=== PATIENT | female | born 1955 | race Caucasian/White ===

== ENCOUNTER 2017-11-09 17:55 | Inpatient (IN) | payer OTHER ==
[2017-11-09 20:10] LABS: ADD MAN DIFF? NO
[2017-11-09 20:16] LABS: WHITE BLOOD COUNT 7.8 10^3/ul (4.8-10.8)
[2017-11-09 20:16] LABS: BASOPHIL # 0.1 10^3/ul (0.0-0.1); BASOPHILS % 0.8 % (0.0-2.0); EOSINOPHILS # 0.9 10^3/ul (0.0-0.5); EOSINOPHILS % 11.4 % (0.0-7.0); HEMOGLOBIN 10.8 g/dl (12.0-16.0); LYMPHOCYTES # 2.5 10^3/ul (0.8-2.9); LYMPHOCYTES % 31.8 % (15.0-51.0); MEAN CORPUSCULAR HEMOGLOBIN 29.4 pg (29.0-33.0); MEAN CORPUSCULAR HGB CONC 33.8 g/dl (32.0-37.0); MEAN CORPUSCULAR VOLUME 87.2 fl (82.0-101.0); MEAN PLATELET VOLUME 10.1 fl (7.4-10.4); MONOCYTE # 0.7 10^3/ul (0.3-0.9); MONOCYTES % 9.1 % (0.0-11.0); NEUTROPHIL # 3.7 10^3/ul (1.6-7.5); NEUTROPHILS % 46.6 % (39.0-77.0); PLATELET COUNT 291 10^3/UL (140-415); RED BLOOD COUNT 3.67 10^6/ul (4.20-5.40); RED CELL DISTRIBUTION WIDTH 13.2 % (11.5-14.5)
[2017-11-09 20:17] LABS: INR 0.93; PARTIAL THROMBOPLASTIN TIME 26.9 Sec (25.0-35.0); PROTIME 12.5 Sec (11.9-14.9)
[2017-11-09 20:21] LABS: ALANINE AMINOTRANSFERASE 38 IU/L (13-69); ALBUMIN 4.3 g/dl (3.3-4.9); ALBUMIN/GLOBULIN RATIO 1.07; ALKALINE PHOSPHATASE 77 IU/L (42-121); ANION GAP 17 (8-16); ASPARTATE AMINO TRANSFERASE 42 IU/L (15-46); BILIRUBIN,INDIRECT 0.1 mg/dl (0-1.1); BILIRUBIN,TOTAL 0.1 mg/dl (0.2-1.3); BLOOD UREA NITROGEN 15 mg/dl (7-20); CALCIUM 9.3 mg/dl (8.4-10.2); CARBON DIOXIDE 27 mmol/L (21-31); CHLORIDE 104 mmol/L (97-110); CREATININE 1.01 mg/dl (0.44-1.00); GLUCOSE 91 mg/dl (70-220); LIPASE 110 U/L (23-300); POTASSIUM 3.8 mmol/L (3.5-5.1); SODIUM 144 mmol/L (135-144); TOTAL PROTEIN 8.3 g/dl (6.1-8.1)
[2017-11-09 20:34] LABS: TROPONIN-I < 0.012 ng/ml (0.000-0.120)
[2017-11-09] MEDS: ASPIRIN 81 MG TAB PO (21:24)
[2017-11-09 21:36] LABS: ADD UMIC YES; UR AMORPHOUS CRYSTAL FEW /HPF (NONE SEEN); UR ASCORBIC ACID NEGATIVE (NEGATIVE); UR BACTERIA MANY /HPF (NONE SEEN); UR BILIRUBIN (Dip) NEGATIVE (NEGATIVE); UR BLOOD (Dip) 1+ mg/dL (NEGATIVE); UR CLARITY CLOUDY (CLEAR); UR COLOR YELLOW (YELLOW); UR GLUCOSE (Dip) NEGATIVE (NEGATIVE); UR KETONES (Dip) NEGATIVE (NEGATIVE); UR LEUKOCYTE ESTERASE (Dip) TRACE Leu/ul (NEGATIVE); UR NITRITE (Dip) NEGATIVE (NEGATIVE); UR RBC 4 /HPF (0-5); UR SPECIFIC GRAVITY (Dip) 1.003 (1.003-1.030); UR SQUAMOUS EPITHELIAL CELL MANY /HPF (FEW); UR TOTAL PROTEIN (Dip) NEGATIVE (NEGATIVE); UR UROBILINOGEN (Dip) NEGATIVE (NEGATIVE); UR WBC 3 /HPF (0-5)
[2017-11-09] MEDS ORDERED: DEXTROSE 50% 50 ML SYRINGE IV ×2 (23:30)
[2017-11-09] MEDS ORDERED: GLUCOSE GEL 15 GRAM TUBE BUCCAL (23:30)
[2017-11-09] MEDS ORDERED: GLUCOSE GEL 15 GRAM TUBE PO ×2 (23:30)
[2017-11-09] MEDS ORDERED: GLUCAGON 1 MG INJ IM (23:30)
[2017-11-10] MEDS: GABAPENTIN 100 MG CAP PO ×2 (00:19→20:07)
[2017-11-10] MEDS ORDERED: ALBUTEROL HFA 8 GM INHALER INH ×2 (01:30→02:00)
[2017-11-10] MEDS: ACCU-CHEK XX (02:00)
[2017-11-10] MEDS: LEVOTHYROXINE 150 MCG TAB PO (06:29)
[2017-11-10 07:26] LABS: HEMOGLOBIN A1C 6.5 % (0-5.9)
[2017-11-10 07:45] LABS: CHOLESTEROL 194 mg/dl (100-200)
[2017-11-10 07:45] LABS: CHOL/HDL RATIO 6.9 RATIO; HDL CHOLESTEROL 28 mg/dl (35-98); LDL CHOLESTEROL,CALCULATED 115 mg/dl; TRIGLYCERIDES 255 mg/dl (0-149)
[2017-11-10 07:54] LABS: FREE T4 (FREE THYROXINE) 0.59 ng/dl (0.78-2.44)
[2017-11-10] MEDS: INSULIN ASPART [NOVOLOG] 3 ML PEN SC ×4 (07:55→20:10)
[2017-11-10] MEDS: LISINOPRIL 10 MG TAB PO (08:57)
[2017-11-10] MEDS: CLOPIDOGREL 75 MG TAB PO (08:57)
[2017-11-10] MEDS: metFORMIN 500 MG TAB PO ×2 (08:57→17:59)
[2017-11-10] MEDS: ASPIRIN (EC) 81 MG TAB PO (08:57)
[2017-11-10] MEDS: ALPRAZOLAM 1 MG TAB PO (15:39)
[2017-11-11] MEDS: ACCU-CHEK XX (02:00)
[2017-11-11 06:11] LABS: RETICULOCYTE RBC 3.67
[2017-11-11 06:11] LABS: RETICULOCYTE COUNT # 0.081 X10^6 (0.020-0.110); RETICULOCYTE COUNT % 2.2 % (0.5-1.5)
[2017-11-11 06:34] LABS: IRON 56 ug/dl (35-150)
[2017-11-11 06:38] LABS: LACTATE DEHYDROGENASE 429 IU/L (313-618)
[2017-11-11 06:43] LABS: % IRON SATURATION 15 % SAT (22-52); TOTAL IRON BINDING CAPACITY 364 ug/dl (241-421)
[2017-11-11] MEDS: LEVOTHYROXINE 100 MCG TAB PO (06:52)
[2017-11-11 07:10] LABS: FERRITIN 34.1 ng/ml (11.1-264.0)
[2017-11-11 07:41] LABS: FOLATE 18.9 ng/ml (2.8-20.0)
[2017-11-11] MEDS: INSULIN ASPART [NOVOLOG] 3 ML PEN SC ×4 (07:55→21:00)
[2017-11-11] MEDS: LISINOPRIL 10 MG TAB PO (08:03)
[2017-11-11] MEDS: ASPIRIN (EC) 81 MG TAB PO (08:03)
[2017-11-11] MEDS: metFORMIN 500 MG TAB PO ×2 (08:03→17:07)
[2017-11-11] MEDS: CLOPIDOGREL 75 MG TAB PO (08:03)
[2017-11-11] MEDS: ALPRAZOLAM 1 MG TAB PO (10:48)
[2017-11-11] MEDS: SOD CHLORIDE 0.9% 100 ML (16:38)
[2017-11-11] MEDS: IOHEXOL 100 ML (16:39)
[2017-11-11] MEDS: GABAPENTIN 100 MG CAP PO (21:27)
[2017-11-12] MEDS: ACCU-CHEK XX (02:00)
[2017-11-12 06:02] LABS: ADD MAN DIFF? NO
[2017-11-12 06:12] LABS: BASOPHIL # 0.1 10^3/ul (0.0-0.1); BASOPHILS % 0.8 % (0.0-2.0); EOSINOPHILS # 0.8 10^3/ul (0.0-0.5); EOSINOPHILS % 11.5 % (0.0-7.0); HEMATOCRIT 32.8 % (37.0-47.0); LYMPHOCYTES # 2.1 10^3/ul (0.8-2.9); MEAN CORPUSCULAR HEMOGLOBIN 29.2 pg (29.0-33.0); MEAN CORPUSCULAR HGB CONC 33.5 g/dl (32.0-37.0); MEAN PLATELET VOLUME 9.9 fl (7.4-10.4); MONOCYTE # 0.5 10^3/ul (0.3-0.9); MONOCYTES % 7.6 % (0.0-11.0); NEUTROPHIL # 3.1 10^3/ul (1.6-7.5); NEUTROPHILS % 47.8 % (39.0-77.0); PLATELET COUNT 267 10^3/UL (140-415); RED BLOOD COUNT 3.77 10^6/ul (4.20-5.40); RED CELL DISTRIBUTION WIDTH 13.3 % (11.5-14.5)
[2017-11-12 06:12] LABS: WHITE BLOOD COUNT 6.5 10^3/ul (4.8-10.8)
[2017-11-12 06:37] LABS: ANION GAP 16 (8-16); BLOOD UREA NITROGEN 11 mg/dl (7-20); CALCIUM 9.2 mg/dl (8.4-10.2); CARBON DIOXIDE 25 mmol/L (21-31); CHLORIDE 107 mmol/L (97-110); CREATININE 0.87 mg/dl (0.44-1.00); GLUCOSE 106 mg/dl (70-220); SODIUM 144 mmol/L (135-144)
[2017-11-12] MEDS: LEVOTHYROXINE 100 MCG TAB PO (06:43)
[2017-11-12] MEDS: metFORMIN 500 MG TAB PO ×2 (07:54→17:28)
[2017-11-12] MEDS: CLOPIDOGREL 75 MG TAB PO (07:55)
[2017-11-12] MEDS: LISINOPRIL 10 MG TAB PO (07:55)
[2017-11-12] MEDS: ASPIRIN (EC) 81 MG TAB PO (07:55)
[2017-11-12] MEDS: INSULIN ASPART [NOVOLOG] 3 ML PEN SC ×4 (07:55→21:00)
[2017-11-12 10:27] LABS: OCCULT BLOOD STOOL NEGATIVE (NEGATIVE)
[2017-11-12] MEDS: BARIUM SULFATE 135 ML (E-Z HD) PO (11:41)
[2017-11-12] MEDS: ALPRAZOLAM 1 MG TAB PO (17:27)
[2017-11-12] MEDS: LEVOFLOXACIN 500MG/D5W (PMX) 100 ML IVPB (17:54)
[2017-11-12] MEDS: GABAPENTIN 100 MG CAP PO (21:14)
[2017-11-12] MEDS: ACETAMINOPHEN 325 MG TAB PO (21:23)
[2017-11-13] MEDS: ACCU-CHEK XX (02:00)
[2017-11-13] MEDS: LEVOTHYROXINE 100 MCG TAB PO (06:28)
[2017-11-13] MEDS: INSULIN ASPART [NOVOLOG] 3 ML PEN SC ×4 (07:55→20:25)
[2017-11-13] MEDS: ASPIRIN (EC) 81 MG TAB PO (08:12)
[2017-11-13] MEDS: CLOPIDOGREL 75 MG TAB PO (08:12)
[2017-11-13] MEDS: metFORMIN 500 MG TAB PO ×3 (08:13→17:55)
[2017-11-13] MEDS: LISINOPRIL 10 MG TAB PO (08:14)
[2017-11-13] MEDS: LEVOFLOXACIN 500MG/D5W (PMX) 100 ML IVPB (17:31)
[2017-11-13] MEDS: GABAPENTIN 100 MG CAP PO (20:25)
[2017-11-14] MEDS: ACCU-CHEK XX (02:00)
[2017-11-14] MEDS: LEVOTHYROXINE 100 MCG TAB PO (06:06)
[2017-11-14] MEDS: INSULIN ASPART [NOVOLOG] 3 ML PEN SC ×2 (07:55→11:50)
[2017-11-14] MEDS: metFORMIN 500 MG TAB PO (08:16)
[2017-11-14] MEDS: CLOPIDOGREL 75 MG TAB PO (08:16)
[2017-11-14] MEDS: ASPIRIN (EC) 81 MG TAB PO (08:16)
[2017-11-14] MEDS: LISINOPRIL 10 MG TAB PO (08:17)
== END 2017-11-14 17:15 | disposition home or self-care (01) | DRG 69 ==
LOC: TEL 11-10 20:05 → E/R 17:55 → TEL 20:58
DX: G45.9 Transient cerebral ischemic attack, unspecified (principal); N39.0 Urinary tract infection, site not specified; I10 Essential (primary) hypertension; E11.9 Type 2 diabetes mellitus without complications; E03.9 Hypothyroidism, unspecified; F41.9 Anxiety disorder, unspecified; M50.30 Other cervical disc degeneration, unspecified cervical region; D17.0 Benign lipomatous neoplasm of skin and subcutaneous tissue of head, face and neck
CPT/HCPCS: 36415; 70450; 70551; 71045; 72141; 74230; 80048; 80053; 80061; 81001; 82270; 82607; 82728; 82746; 82962; 83036; 83540; 83615; 83690; 84439; 84443; 84484; 85025; 85045; 85610; 85730; 87086; 92526; 92610; 92611; 93005; 93306; 93880; 97110; 97116; 97162; 97530; 99285-25